=== PATIENT | female | born 1980 | race African-American/Black ===

== ENCOUNTER 2023-09-14 08:07 | Emergency (ER) | payer MEDICAID ==
[~2023-09-14] VITALS: Ht 170.2 cm; Wt 102.1 kg
[2023-09-14] MEDS ORDERED: KETOROLAC TROMETHAMINE 15 MG/ML VIAL ONE (08:17)
[2023-09-14] MEDS ORDERED: ACETAMINOPHEN 325 MG TABLET ONE (08:18)
[2023-09-14] MEDS ORDERED: CYCLOBENZAPRINE 10 MG TABLET ONE (08:18)
[2023-09-14] MEDS ORDERED: LIDOCAINE 5% (PATCH) 1 EA PATCH TP ONE (08:18)
[2023-09-14] MEDS: ACETAMINOPHEN 325 MG TABLET PO ONE (08:20)
[2023-09-14] MEDS: LIDOCAINE 5% (PATCH) 1 EA PATCH TP STA (08:20)
[2023-09-14] MEDS: KETOROLAC TROMETHAMINE 15 MG/ML VIAL IM ONE (08:20)
[2023-09-14] MEDS: CYCLOBENZAPRINE 10 MG TABLET PO ONE (08:20)
[2023-09-14] MEDS ORDERED: METH4TAB17 PO (11:37)
[2023-09-14] MEDS ORDERED: LEVO750T46 PO (11:37)
[2023-09-14] MEDS ORDERED: LIDO30AD10 TP (11:37)
[2023-09-14] MEDS ORDERED: IBUP-1955 PO (11:37)
[2023-09-14] MEDS ORDERED: CYCL5TAB PO (11:37)
[2023-09-14 12:15] VITALS: BP 142/80; TEMP 98; O2SAT 99
== END 2023-09-14 12:15 | disposition home or self-care (01) ==
LOC: ER 08:10
DX: M54.12 Radiculopathy, cervical region (principal); M54.59 Other low back pain; J18.9 Pneumonia, unspecified organism; F41.9 Anxiety disorder, unspecified; Z88.0 Allergy status to penicillin
CPT/HCPCS: 99285; 72125; 96372; J1885

== ENCOUNTER 2023-12-31 15:28 | Emergency (ER) | payer MEDICAID ==
[~2023-12-31] VITALS: Ht 170.2 cm; Wt 113.4 kg
[~2023-12-31 15:28] MED LIST: CYCL5TAB PO; IBUP-1955 PO; LEVO750T46 PO; LIDO30AD10 TP; METH4TAB17 PO
[2023-12-31] MEDS ORDERED: CLINDAMYCIN HCL 150 MG CAPSULE ONE (18:01)
[2023-12-31] MEDS ORDERED: KETOROLAC TROMETHAMINE INJ 30 MG/ML VIAL ONE (18:01)
[2023-12-31] MEDS ORDERED: GABAPENTIN 300 MG CAPSULE ONE (18:01)
[2023-12-31] MEDS: GABAPENTIN 100 MG CAPSULE PO ONE (18:08)
[2023-12-31] MEDS: CLINDAMYCIN HCL 150 MG CAPSULE PO ONE (18:08)
[2023-12-31] MEDS: KETOROLAC TROMETHAMINE INJ 30 MG/ML VIAL IM ONE (18:08)
[2023-12-31] MEDS ORDERED: CLIN300C12 PO (18:22)
[2023-12-31] MEDS ORDERED: FURO-145 PO (18:22)
[2023-12-31] MEDS ORDERED: KETO10TA2 PO (18:22)
[2023-12-31] MEDS ORDERED: GABA-536 PO (18:22)
[2023-12-31 20:35] VITALS: BP 124/65; TEMP 98; O2SAT 99
== END 2023-12-31 20:36 ==
LOC: ER 15:39
DX: L03.116 Cellulitis of left lower limb (principal); L03.115 Cellulitis of right lower limb; G62.9 Polyneuropathy, unspecified; R60.0 Localized edema; M79.642 Pain in left hand; M79.641 Pain in right hand; F41.9 Anxiety disorder, unspecified; F19.10 Other psychoactive substance abuse, uncomplicated; Z88.0 Allergy status to penicillin
CPT/HCPCS: 99283; 96372; J1885